=== PATIENT | male | born 1960 | race Caucasian/White ===

== ENCOUNTER 2018-10-23 16:46 | Emergency (ER) | payer OTHER, SELFPAY ==
[2018-10-23 16:47] VITALS: BP 161/77; PULSE 83; RESP 18; TEMP 35.9; O2SAT 95; BMI 37.8
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
[2018-10-23] MEDS: HYDROcodone Bitartrate/Apap 5/325 Tablet PO (17:10)
[2018-10-23] MEDS: Silver Sulfadiazine 1% Crm 50 gm Bottle 1 APPLIC TOPICAL (17:11)
[2018-10-23 17:43] VITALS: RESP 18
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
== END 2018-10-23 17:45 | disposition home or self-care (01) ==
LOC: ED 17:27
PROVIDERS: Emergency Provider Emergency Medicine; Family Provider Family Medicine; PCP Family Medicine
DX: T21.21XA Burn of second degree of chest wall, initial encounter (principal); T21.24XA Burn of second degree of lower back, initial encounter; T31.0 Burns involving less than 10% of body surface; X06.2XXA Exposure to ignition of other clothing and apparel, initial encounter; Y93.9 Activity, unspecified; Y92.89 Other specified places as the place of occurrence of the external cause; Y99.9 Unspecified external cause status; L30.9 Dermatitis, unspecified; Z72.0 Tobacco use
CPT/HCPCS: 99282

== ENCOUNTER → 2019-02-07 11:30 | Outpatient (CLI) | payer OTHER, SELFPAY ==
[2019-02-07 12:03] LABS: Absolute Lymphocyte Count 2.86 X10^3/ul (0.83-4.51); Absolute Neutrophil Count 5.4 X10^3/uL (2.0-7.7); Basophil# 0.07 X10^3/uL; Basophil% 0.7 % (0-1); Eosinophil# 0.28 X10^3/uL; Eosinophils% 2.9 % (0-5); Hematocrit 45.6 % (40-54); Hemoglobin 14.7 g/dl (13.0-16.5); Lymphocyte # 2.86 X10^3/ul (4.0); Lymphocyte % 29.4 % (19-41); Mean Corp Hgb Conc 32.2 g/gl (32-36); Mean Corpuscular Volume 89.9 fL (80-94); Mean Platelet Vol. 10.6 fl (6.2-12.0); Monocyte# 1.08 X10^3/uL; Monocyte% 11.1 % (0-10); Neutrophil # 5.37 X10^3/uL (2.7-7.7); Neutrophil % 55.3 % (47-70); POSITIVE COUNT NO; POSITIVE DIFFERENTIAL NO; POSITIVE MORPHOLOGY NO; Platelet Count 257 K/mm3 (150-450); RBC Distribution Width CV 13.4 % (11.6-14.6); RBC Distribution Width SD 44.1 fl (35.1-43.9); Red Blood Count 5.07 M/mm3 (4.6-6.2); White Blood Count 9.7 K/mm3 (4.4-11.0)
[2019-02-07 12:43] LABS: Albumin, Serum 4.1 g/dL (3.2-5.0); BUN 22 mg/dL (7-18); BUN/Creat Ratio 26.5 RATIO (10-20); Creatinine, Serum 0.83 mg/dL (0.70-1.30); EST Glomerular Filtration Rate 101 mL/min (>60); Est Glom Filt Rate - Afr Amer 122 mL/min (>60); Globulin 3.6 g/dL (2.2-4.2); Glucose 116 mg/dL (74-106); Protein, Total 7.7 g/dL (6.4-8.2)
[2019-02-07 12:44] LABS: ALB/GLOB Ratio 1.1 RATIO (0.9-2.4); AST(SGOT) 18 U/L (15-37); Alanine Aminotransfer ALT/SGPT 31 U/L (16-61); Alkaline Phosphatase 117 U/L (45-117); Anion Gap 6 (5-15); Calcium,Total 9.4 mg/dL (8.5-10.1); Chloride 105 mmol/L (98-107); Potassium 4.4 mmol/L (3.5-5.1); Sodium Level 139 mmol/L (136-145)
[2019-02-11 20:08] LABS: QNTFERON TB Mitogen Value > 10.00 IU/mL (.); QNTFERON TB Nil Value 0.02 IU/mL (.); QNTFERON TB1+ Ag Value 0.02 IU/mL (.); QNTFERON TB2+ Ag Value 0.02 IU/mL (.)
[2019-02-12 15:54] LABS: QNTIFERON TB Positive Criteria Negative (Negative)
== END ==
PROVIDERS: Family Provider Family Medicine; PCP Family Medicine; Referring Provider Physician Assistant; Visit Provider Physician Assistant
DX: L40.0 Psoriasis vulgaris (principal); Z79.899 Other long term (current) drug therapy; S20.469A Insect bite (nonvenomous) of unspecified back wall of thorax, initial encounter; S30.861A Insect bite (nonvenomous) of abdominal wall, initial encounter
CPT/HCPCS: 36415; 80053; 85025; 86480

== ENCOUNTER 2020-01-05 08:25 | Day surgery (SDC) | payer OTHER, SELFPAY ==
[2020-01-05 08:42] VITALS: BP 144/80; PULSE 75; RESP 18; TEMP 36.6; O2SAT 94; BMI 36.8
[2020-01-05] MEDS: Lactated Ringers 1,000 ML 100 ML IV (09:05)
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
--- NOTE | 2020-01-05 09:54 | OP.CCLET_ITS ---
01/05/2020 Gigi Alas Re : Colonoscopy procedure for Peng Michelle Dear Evette This procedure was performed on Sunday, January 05, 2020. My impressions and recommendations are as follows: Impressions : - The entire examined colon is normal on direct and retroflexion views. - No specimens collected. Recommendations : - Discharge patient to home. - Resume previous diet. - Continue present medications. - Repeat colonoscopy in 10 years for screening purposes. My findings are described in the full procedure note, which is enclosed. If I can be of further assistance, please feel free to contact me at Doctor phone number(s): , Work: . Sincerely, Dima Gregory MD 01/05/2020 9:53:46 AM This report has been signed electronically.
--- NOTE | 2020-01-05 09:54 | OP.COLON_ITS ---
Patient Name: Peng Michelle Procedure Date: 01/05/2020 9:30 AM Date of : 1960 Age: 59 Procedure: Colonoscopy Indications: Screening for colorectal malignant neoplasm Providers: Dima Gregory MD Medicines: Monitored Anesthesia Care Patient Profile: This is a 59 year old male. Refer to note in patient chart for documentation of history and physical. Last Colonoscopy: 10 years ago. Complications: No immediate complications. Procedure: Pre-Anesthesia Assessment: - Prior to the procedure, a History and Physical was performed, and patient medications and allergies were reviewed. The patient's tolerance of previous anesthesia was also reviewed. The risks and benefits of the procedure and the sedation options and risks were discussed with the patient. All questions were answered, and informed consent was obtained. Prior Anticoagulants: The patient has taken no previous anticoagulant or antiplatelet agents. ASA Grade Assessment: II - A patient with mild systemic disease. After reviewing the risks and benefits, the patient was deemed in satisfactory condition to undergo the procedure. After I obtained informed consent, the scope was passed under direct vision. Throughout the procedure, the patient's blood pressure, pulse, and oxygen saturations were monitored continuously. The pediatric colonoscope was introduced through the anus and advanced to the cecum, identified by appendiceal orifice and ileocecal valve. The colonoscopy was performed without difficulty. The patient tolerated the procedure well. The quality of the bowel preparation was good. Scope In: 9:40:29 AM Scope Withdrawal Time 0 hours 6 minutes 2 seconds Scope Out: 9:50:33 AM Total Procedure Duration Time 0 hours 10 minutes 4 seconds Findings: The entire examined colon appeared normal on direct and retroflexion views. Impression: - The entire examined colon is normal on direct and retroflexion views. - No specimens collected. Recommendation: - Discharge patient to home. - Resume previous diet. - Continue present medications. - Repeat colonoscopy in 10 years for screening purposes. Procedure Code(s): --- Professional --- 79860, Colonoscopy, flexible; diagnostic, including collection of specimen(s) by brushing or washing, when performed (separate procedure) Diagnosis Code(s): --- Professional --- Z12.11, Encounter for screening for malignant neoplasm of colon CPT copyright 2017 [employer]. All rights reserved. The codes documented in this report are preliminary and upon customer care manager review may be revised to meet current compliance requirements. Dima Gregory MD 01/05/2020 9:53:46 AM This report has been signed electronically. Number of Addenda: 0 Note Initiated On: 01/05/2020 9:30 AM
[2020-01-05 09:55] VITALS: BP 104/55; BP 144/80; PULSE 64; RESP 16; TEMP 36.1; O2SAT 94
[2020-01-05 10:00] VITALS: BP 112/66; BP 144/80; PULSE 64; RESP 16; O2SAT 95
[2020-01-05 10:05] VITALS: BP 107/52; BP 144/80; PULSE 58; RESP 16; O2SAT 95
[2020-01-05 10:10] VITALS: BP 104/55; BP 144/80; PULSE 60; RESP 16; TEMP 36.5; O2SAT 92
[2020-01-05 10:36] VITALS: BP 144/80
== END 2020-01-05 10:37 | disposition home or self-care (01) ==
LOC: EN 08:27 → AC 08:29
PROVIDERS: PCP Family Medicine; Referring Provider Family Medicine; Visit Provider Surgery
PROC: 0DJD8ZZ Inspection of Lower Intestinal Tract, Via Natural or Artificial Opening Endoscopic (ICD-10-PCS; CPT 45378; principal; 2020-01-05 09:40)
DX: Z12.11 Encounter for screening for malignant neoplasm of colon (principal); F17.200 Nicotine dependence, unspecified, uncomplicated
CPT/HCPCS: 45378; J7120

== ENCOUNTER → 2021-01-04 09:09 | Outpatient (CLI) | payer OTHER, SELFPAY ==
[2021-01-08 03:06] LABS: QNTFERON TB Mitogen Value > 10.00 IU/mL (.); QNTFERON TB Nil Value 0.02 IU/mL (.); QNTFERON TB1+ Ag Value 0.04 IU/mL (.); QNTFERON TB2+ Ag Value 0.02 IU/mL (.)
[2021-01-08 15:36] LABS: QNTIFERON TB Positive Criteria Negative (Negative)
== END ==
PROVIDERS: PCP Family Medicine; Referring Provider Physician Assistant Medical; Visit Provider Physician Assistant Medical
DX: L40.0 Psoriasis vulgaris (principal); Z79.899 Other long term (current) drug therapy; D22.5 Melanocytic nevi of trunk; L82.1 Other seborrheic keratosis
CPT/HCPCS: 36415; 86480

== ENCOUNTER 2021-02-10 15:35 | Outpatient (RCR) | payer OTHER, SELFPAY ==
[2021-02-10] MEDS: COVID-19 VACC, MRNA(PFIZER)/PF 30 MCG/0.3 ML SYRINGE IM (08:56)
== END 2021-02-10 23:59 ==
LOC: IMMUN 15:35
PROVIDERS: PCP Family Medicine; Visit Provider Family Medicine
DX: Z23 Encounter for immunization (principal)
CPT/HCPCS: 0001A; 91300

== ENCOUNTER 2022-01-03 09:23 | Outpatient (CLI) | payer OTHER, SELFPAY ==
[2022-01-03 11:01] LABS: PSA,Total - Annual Screen 0.46 ng/mL (0.00-4.00)
[2022-01-05 22:06] LABS: QNTFERON TB Mitogen Value > 10.00 IU/mL (.); QNTFERON TB Nil Value 0.02 IU/mL (.); QNTFERON TB1+ Ag Value 0.02 IU/mL (.); QNTFERON TB2+ Ag Value 0.02 IU/mL (.)
[2022-01-05 22:42] LABS: QNTIFERON TB Positive Criteria Negative (Negative)
== END 2022-01-03 23:59 | disposition home or self-care (01) ==
LOC: LAB 09:28
PROVIDERS: PCP Family Medicine; Visit Provider Family Medicine
DX: Z12.5 Encounter for screening for malignant neoplasm of prostate (principal); L40.0 Psoriasis vulgaris; Z79.899 Other long term (current) drug therapy
CPT/HCPCS: 36415; 84153; 86480; G0103

== ENCOUNTER → 2024-02-17 | Outpatient (CLI) | payer OTHER, SELFPAY ==
[2024-02-19 19:07] LABS: QNTFERON TB Mitogen Value > 10.00 IU/mL (.); QNTFERON TB Nil Value 0.05 IU/mL (.); QNTFERON TB1+ Ag Value 0.06 IU/mL (.); QNTFERON TB2+ Ag Value 0.06 IU/mL (.); QNTIFERON TB Positive Criteria Negative (Negative)
== END | disposition home or self-care (01) ==
PROVIDERS: PCP Family Medicine; Referring Provider Dermatology; Visit Provider Dermatology
DX: L40.0 Psoriasis vulgaris (principal); Z79.899 Other long term (current) drug therapy
CPT/HCPCS: 36415; 86480

== ENCOUNTER → 2024-11-30 | Outpatient (CLI) | payer MEDICARE, BC, SELFPAY ==
[2024-12-01 00:12] LABS: ALB/GLOB Ratio 1.2 RATIO (0.9-2.4); AST(SGOT) 22 U/L (15-37); Alanine Aminotransfer ALT/SGPT 41 U/L (16-61); Albumin, Serum 4.2 g/dL (3.2-5.0); Alkaline Phosphatase 106 U/L (45-117); Anion Gap 8 (5-15); BUN 18 mg/dL (7-18); BUN/Creat Ratio 18.1 RATIO (10-20); Calcium,Total 9.1 mg/dL (8.5-10.1); Chloride 102 mmol/L (98-107); Cholesterol 276 mg/dL (200); Creatinine, Serum 0.99 mg/dL (0.70-1.30); EST Glomerular Filtration Rate 80 mL/min (>60); Est Glom Filt Rate - Afr Amer 97 mL/min (>60); Globulin 3.5 g/dL (2.2-4.2); Glucose 173 mg/dL (74-106); High Density Lipoprotein 39 mg/dL; Magnesium 2.3 mg/dL (1.6-2.6); Potassium 3.7 mmol/L (3.5-5.1); Protein, Total 7.7 g/dL (6.4-8.2); Sodium Level 136 mmol/L (136-145); Triglycerides 354 mg/dL; Very Low Density Lipoprotein 71 mg/dL (5-40)
[2024-12-01 00:20] LABS: Absolute Lymphocyte Count 3.01 X10^3/uL (0.83-4.51); Absolute Neutrophil Count 9.7 X10^3/uL (2.0-7.7); Basophil% 0.7 % (0-1); Eosinophils% 1.4 % (0-5); Hematocrit 45.4 % (40-54); Hemoglobin 14.8 g/dL (13.0-16.5); Lymphocyte # 3.01 X10^3/ul (0.83-4.51); Mean Corp Hgb Conc 32.6 g/dL (32-36); Mean Corpuscular Hgb 28.8 pg (27.0-32.0); Mean Corpuscular Volume 88.5 fL (80-94); Mean Platelet Vol. 11.8 fl (6.2-12.0); Monocyte# 1.11 X10^3/uL; Monocyte% 7.8 % (0-10); NRBC Flagged by Analyzer 0 % (0-5); Neutrophil # 9.72 X10^3/uL (2.7-7.7); Neutrophil % 67.9 % (47-70); Platelet Count 264 K/mm3 (150-450); RBC Distribution Width CV 12.6 % (11.6-14.6); RBC Distribution Width SD 40.8 fl (35.1-43.9); Red Blood Count 5.13 M/mm3 (4.6-6.2); White Blood Count 14.3 K/mm3 (4.4-11.0)
[2024-12-03 10:08] LABS: Anti-Centromere B Ab <0.2 AI (0.0-0.9); Anti-Chromatin <0.2 AI (0.0-0.9); Anti-Jo <0.2 AI (0.0-0.9); Anti-Scleroderma-70 AB <0.2 AI (0.0-0.9); Anti-dsDNA Ab <1 IU/mL (0-9); CRP, High Sensitivity 1.83 mg/L (0.00-3.00); RNP Ab <0.2 AI (0.0-0.9); SJOGREN'S Anti-SS-A test < 0.2 AI (0.0-0.9); SJOGREN'S Anti-SS-B test < 0.2 AI (0.0-0.9); Smith Ab <0.2 AI (0.0-0.9)
== END | disposition home or self-care (01) ==
PROVIDERS: PCP Family Medicine; Referring Provider Nurse Practitioner; Visit Provider Nurse Practitioner
DX: E78.00 Pure hypercholesterolemia, unspecified (principal); M25.541 Pain in joints of right hand; R35.0 Frequency of micturition; M35.9 Systemic involvement of connective tissue, unspecified; R79.89 Other specified abnormal findings of blood chemistry; R53.83 Other fatigue; Z12.5 Encounter for screening for malignant neoplasm of prostate
CPT/HCPCS: 80053; 80061; 83735; 84153; 84403; 84443; 85025; 86141; 86225; 86235; G0103

== ENCOUNTER 2025-02-18 07:20 | Outpatient (CLI) | payer MEDICARE, BC, SELFPAY ==
[2025-02-18 10:56] LABS: Hemoglobin A1c 5.9 % (<=5.6)
[2025-02-18 11:05] LABS: Estradiol 39.1 pg/mL; Follicle Stimulating Hormone 4.4 mIU/mL; Luteinizing Hormone 3.5 mIU/mL; Vitamin D,25 Hydroxy 28.2 ng/mL (30-100)
[2025-02-27 11:09] LABS: Sex Hormone-binding Globulin 57.1 nmol/L (19.3-76.4); Testosterone, % Free 2.63 % (1.50-4.20); Testosterone, Free 9.94 ng/dL (5.00-21.00); Testosterone, Total 378 ng/dL (264-916)
== END 2025-02-18 23:59 | disposition home or self-care (01) ==
LOC: MTLAB 07:24
PROVIDERS: PCP Family Medicine; Referring Provider Registered Nurse; Visit Provider Registered Nurse
DX: E29.1 Testicular hypofunction (principal); R53.83 Other fatigue; R68.82 Decreased libido; R35.0 Frequency of micturition
CPT/HCPCS: 36415; 82306; 82670; 83001; 83002; 83036; 84270; 84402; 84403

== ENCOUNTER → 2025-06-21 | Outpatient (CLI) | payer MEDICARE, BC, SELFPAY ==
--- OUTSIDE RECORDS SUMMARY | 2025-06-21 10:38 | XMS RPT_ITS | CCD ---
Author Organization [facility] Care Team Providers Care Electrostatic Powder Coating Technician Name Role Phone Unavailable Primary Care Provider Unavailstephanie Alas MD, Dr. Yu Primary Care Provider [phone] Evette FAN, Dr. Yu Referring Provider Tobin SCRUBBING MACHINE OPERATOR-CAshley Attending Provider [phone] Tobin SCRUBBING MACHINE OPERATOR-CAshley Referring Provider [phone] Faith SCRUBBING MACHINE OPERATOR-CDong Attending Provider Faith SCRUBBING MACHINE OPERATOR-CDong Referring Provider [phone] Tobin SCRUBBING MACHINE OPERATORAshley Referring Unavailable Tobin SCRUBBING MACHINE OPERATORAshley Attending Unavailable Gigi Alas Primary Care Unavailable Dong Cuevas Referring Unavailable Dong Cuevas Attending Unavailable Gigi Alas Primary Care Unavailable Dong Cuevas Attending Unavailable Gigi Alas Primary Care Unavailable Allergies Allergy Classification Reported Allergen(s) Allergy Type Date of Onset Reaction(s) Facility (2 sources) Morphine Drug Allergy 0 Unknown [facility] (2 sources) Shellfish; Translations: [shellfish derived] Allergy to substance 4 skin red and scales [facility] (1 source) Morphine Drug Allergy 0 [facility] Repository Medications Current Medications Medication Drug Class(es) Dates Sig (Normalized) Sig (Original) atorvastatin 40 mg oral tablet (2 sources) HMG-CoA Reductase Inhibitor Start: 12-01-2024 End: 02-16-2025 take 1 tablet by mouth once daily Atorvastatin 40 mg tablet Active 40 mg PO daily February 16, 2025 12:17pm 1 ml ustekinumab 90 mg/ml prefilled syringe (2 sources) Interleukin-12 Antagonist, Interleukin-23 Antagonist Start: 01-04-2020 inject 90 mg by subcutaneous injection every month Ustekinumab 90 MG/ML syringe Active 90 mg SQ EVERY MONTH January 04, 2020 1:00am every 3 months Start: 01-04-2020 inject 90 mg by subc utaneous injection every month Ustekinumab Active 90 MG SQ EVERY MONTH January 04, 2020 1:00am every 3 months Completed/Discontinued Medications Medication Drug Class(es) Dates Sig (Normalized) Sig (Original) amoxicillin 875 mg / clavulanate 125 mg oral tablet (1 source) Penicillin-class Antibacterial Start: 04-08-2024 End: 12-01-2024 Amoxicillin-Pot Clavulanate 875-125 mg tablet Discontinued 1 {tbl} PO TWICE A DAY April 08, 2024 12:00am December 01, 2024 2:00pm predniSONE 20 mg oral tablet (1 source) Start: 04-27-2024 End: 12-01-2024 take 2 tablets by mouth once daily Prednisone 20 mg tablet Discontinued 40 mg PO DAILY April 27, 2024 12:00am December 01, 2024 2:00pm Problems Problem Classification Problem Date Documented Da te Episodic/Chronic Chronic obstructive pulmonary disease and bronchiectasis (1 source) Bronchitis; Translations: [Bronchitis, not specified as acute or chronic] 04-08-2024 Episodic Disorders of lipid metabolism (3 sources) Hypercholesterolemi a; Translations: [Pure hypercholesterolemi a, unspecified] Onset: 12-24-2024 11-30-2024 Chronic Genitourinary symptoms and ill-defined conditions (3 sources) Increased frequency of urination; Translations: [Frequency of micturition] Onset: 06-11-2025 11-30-2024 Episodic Malaise and fatigue (4 sources) Fatigue; Translations: [Other fatigue] Onset: 02-03-2016 09-06-2022 Episodic Other endocrine disorders (2 sources) Male hypogonadism; Translations: [Testicular hypofunction] Onset: 02-03-2016 09-06-2022 Chronic Other endocrine disorders (2 sources) Testicular hypofunction; Translations: [Testicular hypofunction] Onset: 03-17-2025 Chronic Other non-traumatic joint disorders (1 source) Joint pain in right hand; Translations: [Pain in joints of right hand] 11-30-2024 Episodic Other nutritional; endocrine; and metabolic disorders (1 source) Disorder of lipoprotein metabolism, unspecified; Translations: [Disorder of lipoprotein metabolism, unspecified] Onset: 06-11-2025 Chronic Other nutritional; endocrine; and metabolic disorders (1 source) Abnormal weight gain; Translations: [Abnormal weight gain] Onset: 06-11-2025 Episodic Other screening for suspected conditions (not mental disorders or infectious disease) (2 sources) Decreased testosterone level ; Translations: [Other specified abnormal findings of blood chemistry] Onset: 06-11-2025 11-30-2024 Episodic Otitis media and related conditions (1 source) Otitis media of left ear; Translations: [Otitis media, unspecified, left ear] 04-08-2024 Episodic Residual codes; unclassified (1 source) Sleep apnea; Translations: [Sleep apnea, unspecified] 12-01-2024 Chronic Residual codes; unclassified (1 source) Decreased libido; Translations: [Decreased libido] Onset: 06-11-2025 Episodic Systemic lupus erythematosus and connective tissue disorders (1 source) Autoimmune disease; 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, unspecified] 11-30-2024 Chronic Results Test Name Value Interpretation Reference Range Facility Sex Hormone-binding Globulin on 02-27-2025 SHBG 57.1 nmol/L Normal 19.3-76.4 [facility] Comment on above: Result Comment: Perf ormed at: [address] [id number] [facility] Counselor: Dez Butler PhD, Phone: [phone] Performed at: [facility] Lab[address] [id number] [facility] Counselor: Shahba Green MD, Phone: [phone] Performed By: #### L 100.0100, L500.4050, L509.3000, L501.5200, L500.4100, L3100.5440, L501.9910, L3100.7870, L501.9520 #### [facility] [place], [address] Testosterone, Total / Freeon 02-27-2025 TESTOSTER,FREE 9.94 ng/dL Normal 5.00-21.00 [facility] Comment on above: Order Comment: N Performed By: #### L 100.0100, L500.4050, L509.3000, L501.5200, L500.4100, L3100.5440, L501.9910, L3100.7870, L501.9520 #### [facility] [address] [place], [address] TESTOSTER,TOTAL 378 ng/dL Normal 264-916 [facility] Comment on above: Order Comment: N Result Comment: Adul t male reference interval is based on a population of healthy nonobese males (BMI <30) between 19 and 39 years old. Rohini et.al. JCEM 2017,102;7219-3823. PMID: [id number]. Performed By: #### L 100.0100, L500.4050, L509.3000, L501.5200, L500.4100, L3100.5440, L501.9910, L3100.7870, L501.9520 #### [facility] [address] [place], [address] TESTOSTERONE,%F 2.63 Normal 1.50-4.20 [facility] Comment on above: Order Comment: N Performed By: #### L 100.0100, L500.4050, L509.3000, L501.5200, L500.4100, L3100.5440, L501.9910, L3100.7870, L501.9520 #### [facility] [address] [place], [address] E2 post dose follitropin [Ma ss/Vol]Ordered By: Dong Cuevas on 02-18-2025 Estradiol (E2) Level 39.1 pg/mL [facility] Comment on above: MALES ADULT MALE: 10 -40 pg/mL MARK STAGES MEAN AGE REFERENCE RANGES Stage I(>14 days and prepubertal) 7.1 years Undetectable-13 pg/mL Stage II 12.1 years Undetectable-16 pg/mL Stage III 13.6 years Undetectable-26 pg/mL Stage IV 15.1 years Undetectable-38 pg/mL Stage V 18 years 10-40 pg/mL Puberty onset (transition from Mark stage I to Mark Stage II) occurs for boys at a median age of 11.5 (+/- 2) years. For boys, there is no proven relationship between puberty onset and body weight or ethnic origin. Progression through Mark stages is variable. Mark stage V (adult) should be reached by age 18. Estradiolon 02-18-2025 ESTRADIOL 39.1 pg/mL Normal [facility] Comment on above: Result Comment: MALE S ADULT MALE: 10-40 pg/mL MARK STAGES MEAN AGE REFERENCE RANGES Stage I(>14 days and prepubertal) 7.1 years Undetectable-13 pg/mL Stage II 12.1 years Undetectable-16 pg/mL Stage III 13.6 years Undetectable-26 pg/mL Stage IV 15.1 years Undetectable-38 pg/mL Stage V 18 years 10-40 pg/mL Puberty onset (transition from Mark stage I to Mark Stage II) occurs for boys at a median age of 11.5 (+/- 2) years. For boys, there is no proven relationship between puberty onset and body weight or ethnic origin. Progression through Mark stages is variable. Mark stage V (adult) should be reached by age 18. Performed By: #### L 100.0100, L500.4050, L509.3000, L501.5200, L500.4100, L3100.5440, L501.9910, L3100.7870, L501.9520 #### [facility] [place], [address] FSH and LHon 02-18-2025 FSH 4.4 mIU/mL Normal [facility] Comment on above: Result Comment: FEMA LE: Follicular: 1.4 - 18.1 mIU/mL Midcycle: 3.4 - 33.4 mIU/mL Luteal: 1.5 - 9.1 mIU/mL Post Menopause: 23.0 - 116.3 mIU/mL MALE: 1.4 - 18.1 mIU/mL NORMAL REFERENCE RANGES FEMALE FOLLICULAR 2.3 - 12.6 mIU/mL MID-CYCLE PEAK 5.2 - 17.5 mIU/mL LUTEAL 1.7 - 12.9 mIU/mL POST-MENOPAUSAL ON MHT 5.9 - 72.8 mIU/mL NOT ON MHT 12.7 - 132.2 mlU/mL MALE 0.7 - 10.8 mIU/mL Performed By: #### L 100.0100, L500.4050, L509.3000, L501.5200, L500.4100, L3100.5440, L501.9910, L3100.7870, L501.9520 #### [facility] [address] [place], [address] LH 3.5 mIU/mL Normal [facility] Comment on above: Result Comment: FEMA LE: Follicular: 1.9-12.5 mIU/mL Midcycle: 8.7-76.3 mIU/mL Luteal: 0.5-16.9 mIU/mL Post Menopause: 15.9-54.0 mIU/mL MALE: 20-70 Years: 1.5-9.3 mIU/mL >70 Years: 3.1-34.6 mIU/mL Performed By: #### L 100.0100, L500.4050, L509.3000, L501.5200, L500.4100, L3100.5440, L501.9910, L3100.7870, L501.9520 #### [facility] [address] [place], [address] Follicle stimulating hormone (FSH) levelOrdered By: Dong Cuevas on 02-18-2025 Follicle Stimulating Hormone 4.4 mIU/mL [facility] Comment on above: FEMALE:Follicular: 1 .4 - 18.1 mIU/mLMidcycle: 3.4 - 33.4 mIU/mLLuteal: 1.5 - 9.1 mIU/mLPost Menopause: 23.0 - 116.3 mIU/mLMALE: 1.4 - 18.1 mIU/mL NORMAL REFERENCE RANGES FEMALE FOLLICULAR 2.3 - 12.6 mIU/mL MID-CYCLE PEAK 5.2 - 17.5 mIU/mL LUTEAL 1.7 - 12.9 mIU/mL POST-MENOPAUSAL ON MHT 5.9 - 72.8 mIU/mL NOT ON MHT 12.7 - 132.2 mlU/mL MALE 0.7 - 10.8 mIU/mL Hemoglobin A1con 02-18-2025 HbA1c (Bld) [Mass fraction] 5.9 % Normal <=5.6 [facility] Comment on above: Performed By: #### L 3100.5310, L501.9985, L3100.5055, L3100.5060, L3300.1750, L506.1001 #### [facility] [address] [facility] [place], [address] Hemoglobin A1c percentageOrd ered By: Dong Cuevas on 02-18-2025 HbA1c (Bld) [Mass fraction] 5.9 % >5.7 [facility] L506.1001on 02-18-2025 Vitamin D 25-OH 28.2 ng/mL Low 30-100 [facility] Comment on above: Result Comment: Milvia min D Status Deficiency: <20 ng/mL (50nmol/L) Insufficiency: 20-30 ng/mL (50-75 nmol/L) Sufficiency: 30-100 ng/mL (75-250 nmol/L) Toxicity: >100 ng/mL (>250 nmol/L) Performed By: #### L 100.0100, L500.4050, L509.3000, L501.5200, L500.4100, L3100.5440, L501.9910, L3100.7870, L501.9520 #### [facility] [address] [facility] [place], [address] LH ser/plasOrdered By: John Cuevas on 02-18-2025 Luteinizing Hormone 3.5 mIU/mL [facility] Comment on above: FEMALE:Follicular: 1 .9-12.5 mIU/mLMidcycle: 8.7-76.3 mIU/mLLuteal: 0.5-16.9 mIU/mLPost Menopause: 15.9-54.0 mIU/mLMALE:20-70 Years: 1.5-9.3 mIU/mL>70 Years: 3.1-34.6 mIU/mL Vitamin D, 25-hydroxyOrdered By: Dong Cuevas on 02-18-2025 Vitamin D 25-Hydroxy 28.2 ng/mL Low 30-100 [facility] Comment on above: Vitamin D StatusDefi ciency: <20 ng/mL (50nmol/L)Insufficiency: 20-30 ng/mL (50-75 nmol/L)Sufficiency: 30-100 ng/mL (75-250 nmol/L)Toxicity: >100 ng/mL (>250 nmol/L) PARISH Comprehensive Panelon PARISH TABLE Comment Normal . [facility] Comment on above: Result Comment: Auto antibody Disease Association Condition Frequency --------- Antinuclear Antibody, SLE, mixed connective Direct (PARISH-D) tissue diseases --------- dsDNA SLE 40 - 60% --------- Chromatin Drug induced SLE 90% SLE 48 - 97% --------- SSA (Ro) SLE 25 - 35% Sjogren's Syndrome 40 - 70% Lupus 100% --------- SSB (La) SLE 10% Sjogren's Syndrome 30% --------- Sm (anti-Munoz) SLE 15 - 30% --------- QUALITY COMPLIANCE CONSULTANT Mixed Connective Tissue Disease 95% (U1 nRNP, SLE 30 - 50% anti-ribonucleoprotein) Polymyositis and/or Dermatomyositis 20% --------- Scl-70 (antiDNA Scleroderma (diffuse) 20 - 35% topoisomerase) Crest 13% --------- Carly-1 Polymyositis and/or Dermatomyositis 20 - 40% --------- Centromere B Scleroderma - Crest variant 80% Performed By: #### L 100.0100, L500.4050, L509.3000, L501.5200, L500.4100, L3100.5440, L501.9910, L3100.7870, L501.9520 #### [facility] [address] [place], [address] CRP, High Sensitivity [id number] on 12-03-2024 CRP, HIGH SENS 1.83 mg/L Normal 0.00-3.00 [facility] Comment on above: Result Comment: Rela tive Risk for Future Cardiovascular Event Low <1.00 Average 1.00 - 3.00 High >3.00 Performed at: [address] [id number] [facility] Counselor: Dez Butler PhD, Phone: [phone] Performed By: #### L 100.0100, L500.4050, L509.3000, L501.5200, L500.4100, L3100.5440, L501.9910, L3100.7870, L501.9520 #### [facility] [address] [place], [place], [id number] CBC W/Diff, Automatedon 01-0 Absolute Lymph 3.01 X10 3/uL Normal 0.83-4.51 [facility] Comment on above: Performed By: #### L 100.0100, L500.4050, L509.3000, L501.5200, L500.4100, L3100.5440, L501.9910, L3100.7870, L501.9520 #### [facility] [address] [place], [place], [id number] ([phone]) Absolute Neut 9.7 X10 3/uL High 2.0-7.7 [facility] Comment on above: Performed By: #### L 100.0100, L500.4050, L509.3000, L501.5200, L500.4100, L3100.5440, L501.9910, L3100.7870, L501.9520 #### [facility] [address] [place], [place], [id number] (229) Basophils/100 WBC (Bld) 0.7 % Normal 0-1 [facility] Comment on above: Performed By: #### L 100.0100, L500.4050, L509.3000, L501.5200, L500.4100, L3100.5440, L501.9910, L3100.7870, L501.9520 #### [facility] [address] [place], [address] Eosinophils/100 WBC (Bld) 1.4 % Normal 0-5 [facility] Comment on above: Performed By: #### L 100.0100, L500.4050, L509.3000, L501.5200, L500.4100, L3100.5440, L501.9910, L3100.7870, L501.9520 #### [facility] [address] [facility] [place], [address] Erythrocyte distribution width (RBC) [Ratio] 12.6 % Normal 11.6-14.6 [facility] Comment on above: Performed By: #### L 100.0100, L500.4050, L509.3000, L501.5200, L500.4100, L3100.5440, L501.9910, L3100.7870, L501.9520 #### [facility] [address] [facility] [place], [address] Hematocrit (Bld) [Volume fraction] 45.4 % Normal 40-54 [facility] Comment on above: Performed By: #### L 100.0100, L500.4050, L509.3000, L501.5200, L500.4100, L3100.5440, L501.9910, L3100.7870, L501.9520 #### [facility] [address] [facility] [place], [address] Hemoglobin (Bld) [Mass/Vol] 14.8 g/dL Normal 13.0-16.5 [facility] Comment on above: Performed By: #### L 100.0100, L500.4050, L509.3000, L501.5200, L500.4100, L3100.5440, L501.9910, L3100.7870, L501.9520 #### [facility] [address] [place], [address] IG% 1.200 High 0.0-0.9 [facility] Comment on above: Result Comment: IG% - Immature Granulocytes (promyelocytes, myelocytes and metamyelocytes) > 1% indicates that a LEFT SHIFT is Present. Performed By: #### L 100.0100, L500.4050, L509.3000, L501.5200, L500.4100, L3100.5440, L501.9910, L3100.7870, L501.9520 #### [facility] [address] [facility] [place], [address] Lymphocytes/100 WBC (Bld) 21.0 % Normal 19-41 [facility] Comment on above: Performed By: #### L 100.0100, L500.4050, L509.3000, L501.5200, L500.4100, L3100.5440, L501.9910, L3100.7870, L501.9520 #### [facility] [address] [place], [address] MCH (RBC) [Entitic mass] 28.8 pg Normal 27.0-32.0 [facility] Comment on above: Performed By: #### L 100.0100, L500.4050, L509.3000, L501.5200, L500.4100, L3100.5440, L501.9910, L3100.7870, L501.9520 #### [facility] [address] [facility] [place], [address] MCHC (RBC) [Mass/Vol] 32.6 g/dL Normal 32-36 [facility] Comment on above: Performed By: #### L 100.0100, L500.4050, L509.3000, L501.5200, L500.4100, L3100.5440, L501.9910, L3100.7870, L501.9520 #### [facility] [address] [place], [address] MCV (RBC) [Entitic vol] 88.5 fL Normal 80-94 [facility] Comment on above: Performed By: #### L 100.0100, L500.4050, L509.3000, L501.5200, L500.4100, L3100.5440, L501.9910, L3100.7870, L501.9520 #### [facility] [address] [place], [address] Monocytes/100 WBC (Bld) 7.8 % Normal 0-10 [facility] Comment on above: Performed By: #### L 100.0100, L500.4050, L509.3000, L501.5200, L500.4100, L3100.5440, L501.9910, L3100.7870, L501.9520 #### [facility] [address] [place], [address] Neutrophils/100 WBC (Bld) 67.9 % Normal 47-70 [facility] Comment on above: Performed By: #### L 100.0100, L500.4050, L509.3000, L501.5200, L500.4100, L3100.5440, L501.9910, L3100.7870, L501.9520 #### [facility] [address] [place], [address] Nucleated RBC (Bld) [#/Vol] 0 10*3/uL Normal 0-5 [facility] Comment on above: Performed By: #### L 100.0100, L500.4050, L509.3000, L501.5200, L500.4100, L3100.5440, L501.9910, L3100.7870, L501.9520 #### [facility] [address] [place], [address] Platelet mean volume (Bld) [Entitic vol] 11.8 fL Normal 6.2-12.0 [facility] Comment on above: Performed By: #### L 100.0100, L500.4050, L509.3000, L501.5200, L500.4100, L3100.5440, L501.9910, L3100.7870, L501.9520 #### [facility] [address] [place], [address] Platelets (Bld) [#/Vol] 264 10*3/uL Normal 150-450 [facility] Comment on above: Performed By: #### L 100.0100, L500.4050, L509.3000, L501.5200, L500.4100, L3100.5440, L501.9910, L3100.7870, L501.9520 #### [facility] [address] [place], [address] RBC (Bld) [#/Vol] 5.13 10*6/uL Normal 4.6-6.2 [facility] Comment on above: Performed By: #### L 100.0100, L500.4050, L509.3000, L501.5200, L500.4100, L3100.5440, L501.9910, L3100.7870, L501.9520 #### [facility] [address] [place], [address] RDW SD 40.8 fl Normal 35.1-43.9 [facility] Comment on above: Performed By: #### L 100.0100, L500.4050, L509.3000, L501.5200, L500.4100, L3100.5440, L501.9910, L3100.7870, L501.9520 #### [facility] [address] [place], [address] WBC (Bld) [#/Vol] 14.3 10*3/uL High 4.4-11.0 [facility] Comment on above: Performed By: #### L 100.0100, L500.4050, L509.3000, L501.5200, L500.4100, L3100.5440, L501.9910, L3100.7870, L501.9520 #### [facility] [address] [place], [address] Comprehensive Metabolic Prof ilon 12-01-2024 Albumin [Mass/Vol] 4.2 g/dL Normal 3.2-5.0 [facility] Comment on above: Performed By: #### L 100.0100, L500.4050, L509.3000, L501.5200, L500.4100, L3100.5440, L501.9910, L3100.7870, L501.9520 #### [facility] [address] [place], [address] Albumin/Globulin [Mass ratio] 1.2 {ratio} Normal 0.9-2.4 [facility] Comment on above: Performed By: #### L 100.0100, L500.4050, L509.3000, L501.5200, L500.4100, L3100.5440, L501.9910, L3100.7870, L501.9520 #### [facility] [address] [place], [address] ALK P 106 U/L Normal 45-117 [facility] Comment on above: Performed By: #### L 100.0100, L500.4050, L509.3000, L501.5200, L500.4100, L3100.5440, L501.9910, L3100.7870, L501.9520 #### [facility] [address] [place], [address] ALT [Catalytic activity/Vol] 41 U/L Normal 16-61 [facility] Comment on above: Performed By: #### L 100.0100, L500.4050, L509.3000, L501.5200, L500.4100, L3100.5440, L501.9910, L3100.7870, L501.9520 #### [facility] [address] [place], [address] AST [Catalytic activity/Vol] 22 U/L Normal 15-37 [facility] Comment on above: Performed By: #### L 100.0100, L500.4050, L509.3000, L501.5200, L500.4100, L3100.5440, L501.9910, L3100.7870, L501.9520 #### [facility] [address] [place], [address] Bilirubin [Mass/Vol] 0.50 mg/dL Normal 0.20-1.00 [facility] Comment on above: Result Comment: For patients on eltrombopag therapy, use of Dimension [place] TBIL is not recommended. Performed By: #### L 100.0100, L500.4050, L509.3000, L501.5200, L500.4100, L3100.5440, L501.9910, L3100.7870, L501.9520 #### [facility] [address] [place], [address] BUN/CRE 18.1 RATIO Normal 10-20 [facility] Comment on above: Performed By: #### L 100.0100, L500.4050, L509.3000, L501.5200, L500.4100, L3100.5440, L501.9910, L3100.7870, L501.9520 #### [facility] [address] [place], [address] CA,Total 9.1 mg/dL Normal 8.5-10.1 [facility] Comment on above: Performed By: #### L 100.0100, L500.4050, L509.3000, L501.5200, L500.4100, L3100.5440, L501.9910, L3100.7870, L501.9520 #### [facility] [address] [place], [address] Chloride [Moles/Vol] 102 mmol/L Normal 98-107 [facility] Comment on above: Performed By: #### L 100.0100, L500.4050, L509.3000, L501.5200, L500.4100, L3100.5440, L501.9910, L3100.7870, L501.9520 #### [facility] [address] [place], [address] CO2 [Moles/Vol] 26.0 mmol/L Normal 21.0-32.0 [facility] Comment on above: Performed By: #### L 100.0100, L500.4050, L509.3000, L501.5200, L500.4100, L3100.5440, L501.9910, L3100.7870, L501.9520 #### [facility] [address] [place], [address] Creatinine [Mass/Vol] 0.99 mg/dL Normal 0.70-1.30 [facility] Comment on above: Result Comment: The validity of the calculated GFR GFRAA in patients over 70 years has not been determined. Clinical correlation is essential. Performed By: #### L 100.0100, L500.4050, L509.3000, L501.5200, L500.4100, L3100.5440, L501.9910, L3100.7870, L501.9520 #### [facility] [address] [place], [address] EST GFR - AA 97 mL/min Normal >60 [facility] Comment on above: Result Comment: Afri can Prydeinig GFR Calc Performed By: #### L 100.0100, L500.4050, L509.3000, L501.5200, L500.4100, L3100.5440, L501.9910, L3100.7870, L501.9520 #### [facility] [address] [place], [address] GAP 8 Normal 5-15 [facility] Comment on above: Performed By: #### L 100.0100, L500.4050, L509.3000, L501.5200, L500.4100, L3100.5440, L501.9910, L3100.7870, L501.9520 #### [facility] [address] [place], [address] GFR/1.73 sq M.predicted among non-blacks MDRD (S/P/Bld) [Vol rate/Area] 80 mL/min/{1.73_m2} Normal >60 [facility] Comment on above: Result Comment: Non- GFR Calc Performed By: #### L 100.0100, L500.4050, L509.3000, L501.5200, L500.4100, L3100.5440, L501.9910, L3100.7870, L501.9520 #### [facility] [address] [place], [address] Globulin (S) [Mass/Vol] 3.5 g/dL Normal 2.2-4.2 [facility] Comment on above: Performed By: #### L 100.0100, L500.4050, L509.3000, L501.5200, L500.4100, L3100.5440, L501.9910, L3100.7870, L501.9520 #### [facility] [address] [place], [address] Glucose [Mass/Vol] 173 mg/dL High 74-106 [facility] Comment on above: Result Comment: Fast ing Glucose result greater than or equal to 126 mg/dL suggests DIABETES MELLITUS per A.D.A. criteria. Performed By: #### L 100.0100, L500.4050, L509.3000, L501.5200, L500.4100, L3100.5440, L501.9910, L3100.7870, L501.9520 #### [facility] [address] [place], [address] Potassium [Moles/Vol] 3.7 mmol/L Normal 3.5-5.1 [facility] Comment on above: Performed By: #### L 100.0100, L500.4050, L509.3000, L501.5200, L500.4100, L3100.5440, L501.9910, L3100.7870, L501.9520 #### [facility] [address] [place], [address] Sodium [Moles/Vol] 136 mmol/L Normal 136-145 [facility] Comment on above: Performed By: #### L 100.0100, L500.4050, L509.3000, L501.5200, L500.4100, L3100.5440, L501.9910, L3100.7870, L501.9520 #### [facility] [address] [place], [address] T PROT 7.7 g/dL Normal 6.4-8.2 [facility] Comment on above: Performed By: #### L 100.0100, L500.4050, L509.3000, L501.5200, L500.4100, L3100.5440, L501.9910, L3100.7870, L501.9520 #### [facility] [address] [place], [address] Urea nitrogen [Mass/Vol] 18 mg/dL Normal 7-18 [facility] Comment on above: Performed By: #### L 100.0100, L500.4050, L509.3000, L501.5200, L500.4100, L3100.5440, L501.9910, L3100.7870, L501.9520 #### [facility] [address] [place], [address] Lipid Profileon 12-01-2024 Cholesterol [Mass/Vol] 276 mg/dL High 200 [facility] Comment on above: Result Comment: <200 mg/dL Desirable 200-240 mg/dL Borderline >240 mg/dL High Risk Performed By: #### L 100.0100, L500.4050, L509.3000, L501.5200, L500.4100, L3100.5440, L501.9910, L3100.7870, L501.9520 #### [facility] [address] [place], [address] Cholesterol in HDL [Mass/Vol] 39 mg/dL Low [facility] Comment on above: Result Comment: The drugs N-Acetylcysteine and Metamizole may falsely depress this assay. Reference Range HDL <40 mg/dL Low HDL Cholesterol HDL >or= 60 mg/dL High HDL Cholesterol Performed By: #### L 100.0100, L500.4050, L509.3000, L501.5200, L500.4100, L3100.5440, L501.9910, L3100.7870, L501.9520 #### [facility] [address] [place], [address] Cholesterol in LDL [Mass/Vol] 166 mg/dL High 0-130 [facility] Comment on above: Performed By: #### L 100.0100, L500.4050, L509.3000, L501.5200, L500.4100, L3100.5440, L501.9910, L3100.7870, L501.9520 #### [facility] [address] [place], [address] Cholesterol in VLDL [Mass/Vol] 71 mg/dL High 5-40 [facility] Comment on above: Performed By: #### L 100.0100, L500.4050, L509.3000, L501.5200, L500.4100, L3100.5440, L501.9910, L3100.7870, L501.9520 #### [facility] [address] [place], [place], [id number] Triglyceride [Mass/Vol] 354 mg/dL High [facility] Comment on above: Result Comment: The drugs N-Acetylcysteine and Metamizole may falsely depress this assay. Serum Triglycerides Reference Interval Normal <150 mg/dL Borderline high 150 - 199 mg/dL High 200 - 499 mg/dL Very High > or = 500 mg/dL Performed By: #### L 100.0100, L500.4050, L509.3000, L501.5200, L500.4100, L3100.5440, L501.9910, L3100.7870, L501.9520 #### [facility] [address] [place], [address] Magnesiumon 12-01-2024 Magnesium [Mass/Vol] 2.3 mg/dL Normal 1.6-2.6 [facility] Comment on above: Performed By: #### L 100.0100, L500.4050, L509.3000, L501.5200, L500.4100, L3100.5440, L501.9910, L3100.7870, L501.9520 #### [facility] [address] [place], [place], [address] PSA,Total - Annual Screenon 12-01-2024 PSA,TOT SCREEN 0.40 ng/mL Normal 0.00-4.00 [facility] Comment on above: Result Comment: This test was performed using the TPSA assay method for the [employer] system. Values obtained with different assay methods cannot be used interchangably. When changing PSA assays in the course of monitoring a patient, additional sequential testing should be carried out to confirm baseline values. Performed By: #### L 100.0100, L500.4050, L509.3000, L501.5200, L500.4100, L3100.5440, L501.9910, L3100.7870, L501.9520 #### [facility] [address] [place], [address] Testosterone, Serum Totalon 12-01-2024 Testosterone [Mass/Vol] 150.58 ng/dL Normal [facility] Comment on above: Result Comment: CENT RAL 90% REFERENCE RANGES MALE AGE <50 197.44 - 669.58 ng/dL MALE AGE > or = 50 187.72 - 684.19 ng/dL FEMALE AGE <50 8.38 - 35.01 ng/dL FEMALE AGE > or = 50 <7.00 - 35.92 ng/dL Effective as of 06/20/21 Performed By: #### L 100.0100, L500.4050, L509.3000, L501.5200, L500.4100, L3100.5440, L501.9910, L3100.7870, L501.9520 #### [facility] [address] [place], [place], [id number] Thyroid Stim Hormone (TSH)on 12-01-2024 TSH 1.610 uIU/mL Normal 0.358-3.74 0 [facility] Comment on above: Performed By: #### L 100.0100, L500.4050, L509.3000, L501.5200, L500.4100, L3100.5440, L501.9910, L3100.7870, L501.9520 #### [facility] [address] [place], [place], [address] Absolute neutrophil countOrd ered By: Ashley Rudd on 11-30-2024 Neutrophils (Bld) [#/Vol] 9.7 10*3/uL High 2.0-7.7 [facility] Albumin to globulin ratioOrd ered By: Ashley Rudd on 11-30-2024 Albumin/Globulin [Mass ratio] 1.2 {ratio} 0.9-2.4 [facility] Basophil percentageOrdered B y: Ashley Rudd on 11-30-2024 Basophils/100 WBC (Bld) 0.7 % 0-1 [facility] Bilirubin, totalOrdered By: Ashley Rudd on 11-30-2024 Bilirubin [Mass/Vol] 0.50 mg/dL 0.20-1.00 [facility] Comment on above: For patients on eltr ombopag therapy, use of Dimension [place] TBIL is not recommended. Blood urea nitrogen (BUN)/cr eatinine ratioOrdered By: Ashley Rudd on 11-30-2024 Urea nitrogen/Creatinine [Mass ratio] 18.1 mg/mg 10-20 [facility] C-reactive protein measureme nt by high sensitivity methodOrdered By: Ashley Rudd on 11-30-2024 C-Reactive Protein High Sensitivity 1.83 mg/L 0.00-3.00 [facility] Comment on above: Relative Risk for Fu ture Cardiovascular Event Low <1.00 Average 1.00 - 3.00 High >3.00Performed at: [facility] [place] [id number] Director: Dez Butler PhD, Phone: [phone] Carbon dioxide measurementOr dered By: Ashely Rudd on 11-30-2024 CO2 [Moles/Vol] 26.0 mmol/L 21.0-32.0 [facility] Centromere B antibody assayO rdered By: Ashley Rudd on 11-30-2024 Centromere B Antibody <0.2 AI 0.0-0.9 [facility] Comment on above: Previous reported re sult: TNP AIEdited by: YONNY on 12/03/24:1008 AMENDED REPORT 12/03/24 1008 ANTI-CENT B previously reported as: Test not performed Chloride measurementOrdered By: Ashley Rudd on 11-30-2024 Chloride [Moles/Vol] 102 mmol/L 98-107 [facility] Chromatin antibody assayOrde red By: Ashley Rudd on 11-30-2024 Antichromatin Antibodies <0.2 AI 0.0-0.9 [facility] Comment on above: Previous reported re sult: TNP AIEdited by: YONNY on 12/03/24:1008 AMENDED REPORT 12/03/24 1008 ANTICHROMATIN previously reported as: Test not performed DNA double strand Ab Qn (S)O rdered By: Ashley Rudd on 11-30-2024 Anti-Double Strand DNA Antibody <1 IU/mL 0-9 [facility] Comment on above: Negative <5 Equivoca l 5 - 9 Positive >9Previous reported result: TNP IU/mLEdited by: YONNY on 12/03/24:1008 AMENDED REPORT 12/03/24 1008 dsDNA AB previously reported as: Test not performed Eosinophil percentageOrdered By: sAhley Rudd on 11-30-2024 Eosinophils/100 WBC (Bld) 1.4 % 0-5 [facility] Erythrocyte distribution wid th ratioOrdered By: Ashley Rudd on 11-30-2024 Erythrocyte distribution width (RBC) [Ratio] 12.6 % 11.6-14.6 [facility] Erythrocyte distribution wid th standard deviationOrdered By: Ashley Rudd on 11-30-2024 Erythrocyte distribution width (RBC) [Entitic vol] 40.8 fL 35.1-43.9 [facility] Estimated glomerular filtrat ion rate (GFR) AmericanOrdered By: Ashley Rudd on 11-30-2024 Estimated GFR (MDRD) Amer 97 mL/min >60 [facility] Comment on above: GFR Calc Glomerular filtration rate ( GFR) estimationOrdered By: Ashley Rudd on 11-30-2024 Estimated GFR (MDRD) Non-Af Amer 80 mL/min >60 [facility] Comment on above: Non- GFR Calc Glucose measurementOrdered B y: Ashley Rudd on 11-30-2024 Glucose [Mass/Vol] 173 mg/dL High 74-106 [facility] Comment on above: Fasting Glucose resu lt greater than or equal to 126 mg/dL suggests DIABETES MELLITUS per A.D.A. criteria. Hematocrit Auto (Bld) [Volum e fraction]Ordered By: Ashley Rudd on 11-30-2024 Hematocrit (Bld) [Volume fraction] 45.4 % 40-54 [facility] Hemoglobin measurementOrdere d By: Ashley Rudd on 11-30-2024 Hemoglobin (Bld) [Mass/Vol] 14.8 g/dL 13.0-16.5 [facility] High density lipoprotein (HD L) measurementOrdered By: Ashley Rudd on 11-30-2024 Cholesterol in HDL [Mass/Vol] 39 mg/dL Low >40 [facility] Comment on above: The drugs N-Acetylcy steine and Metamizole may falsely depress this assay. Reference Range HDL <40 mg/dL Low HDL Cholesterol HDL >or= 60 mg/dL High HDL Cholesterol Immature granulocytes/100 WB C Auto (Bld)Ordered By: Ashley Rudd on 11-30-2024 Immature granulocytes/100 WBC (Bld) 1.200 % High 0.0-0.9 [facility] Comment on above: IG% - Immature Granu locytes (promyelocytes, myelocytes and metamyelocytes) > 1% indicates that a LEFT SHIFT is Present. Carly-1 antibody assayOrdered B y: Ashley Rudd on 11-30-2024 CARLY-1 Antibody <0.2 AI 0.0-0.9 [facility] Comment on above: Previous reported re sult: TNP AIEdited by: YONNY on 12/03/24:1008 AMENDED REPORT 12/03/24 1008 ANTI-CARLY previously reported as: Test not performed Laboratory - Chemistry and C hemistry - challengeOrdered By: Ashley Rudd on 11-30-2024 AST [Catalytic activity/Vol] 22 U/L 15-37 [facility] Low density lipoprotein (LDL ) cholesterol measurementOrdered By: Ashley Rudd on 11-30-2024 Cholesterol in LDL [Mass/Vol] 166 mg/dL High 0-130 [facility] Lymphocytes Auto (Unsp spec) [#/Vol]Ordered By: Ashley Rudd on 11-30-2024 Lymphocytes (Bld) [#/Vol] 3.01 10*3/uL 0.83-4.51 [facility] Lymphocytes/100 WBC Auto (Un sp spec)Ordered By: Ashley Rudd on 11-30-2024 Lymphocytes/100 WBC (Bld) 21.0 % 19-41 [facility] MCV (mean corpuscular volume ) determinationOrdered By: Ashley Rudd on 11-30-2024 MCV (RBC) [Entitic vol] 88.5 fL 80-94 [facility] Magnesium measurementOrdered By: Ashley Rudd on 11-30-2024 Magnesium [Mass/Vol] 2.3 mg/dL 1.6-2.6 [facility] Mean corpuscular hemoglobin (MCH) determinationOrdered By: Ashley Rudd on 11-30-2024 MCH (RBC) [Entitic mass] 28.8 pg 27.0-32.0 [facility] Mean corpuscular hemoglobin concentration (MCHC) determinationOrdered By: Ashley Rudd on 11-30-2024 MCHC (RBC) [Mass/Vol] 32.6 g/dL 32-36 [facility] Mean platelet volume determi nationOrdered By: Ashley Rudd on 11-30-2024 Platelet mean volume (Bld) [Entitic vol] 11.8 fL 6.2-12.0 [facility] Monocyte percentageOrdered B y: Ashley Rudd on 11-30-2024 Monocytes/100 WBC (Bld) 7.8 % 0-10 [facility] Neutrophil percentageOrdered By: Ashley Rudd on 11-30-2024 Neutrophils/100 WBC (Bld) 67.9 % 47-70 [facility] Nucleated red blood cell per centageOrdered By: Ashley Rudd on 11-30-2024 Nucleated RBC/100 WBC (Bld) [Ratio] 0 % 0-5 [facility] Platelet countOrdered By: Do ra Rudd on 11-30-2024 Platelets (Bld) [#/Vol] 264 10*3/uL 150-450 [facility] Potassium measurementOrdered By: Ashley Rudd on 11-30-2024 Potassium [Moles/Vol] 3.7 mmol/L 3.5-5.1 [facility] RBC Auto (Bld) [#/Vol]Ordere d By: Ashley Rudd on 11-30-2024 RBC (Bld) [#/Vol] 5.13 10*6/uL 4.6-6.2 [facility] QUALITY COMPLIANCE CONSULTANT abOrdered By: Ashley coppola on 11-30-2024 QUALITY COMPLIANCE CONSULTANT Antibody <0.2 AI 0.0-0.9 [facility] Comment on above: Previous reported re sult: TNP AIEdited by: YONNY on 12/03/24:1008 AMENDED REPORT 12/03/24 1008 QUALITY COMPLIANCE CONSULTANT Ab previously reported as: Test not performed SCL-70 extractable nuclear A b Qn (S)Ordered By: Ashley Rudd on 11-30-2024 Scl-70 (Scleroderma) Antibody <0.2 AI 0.0-0.9 [facility] Comment on above: Previous reported re sult: TNP AIEdited by: YONNY on 12/03/24:1008 AMENDED REPORT 12/03/24 1008 ANTISCLER previously reported as: Test not performed SS-A IgG antibody assayOrder ed By: Ashley Rudd on 11-30-2024 SS-A/Ro IgG Antibody < 0.2 AI 0.0-0.9 [facility] Comment on above: Previous reported re sult: TNP AIEdited by: YONNY on 12/03/24:1008 AMENDED REPORT 12/03/24 1008 Anti-SS-A previously reported as: Test not performed SS-B IgG antibody assayOrder ed By: Ashley Rudd on 11-30-2024 SS-B/La IgG Antibody < 0.2 AI 0.0-0.9 [facility] Comment on above: Previous reported re sult: TNP AIEdited by: YONNY on 12/03/24:1008 AMENDED REPORT 12/03/24 1008 Anti-SS-B previously reported as: Test not performed Screening prostate specific antigen (PSA) measurementOrdered By: Ashley Rudd on 11-30-2024 Prostate Specific Antigen Screen 0.40 ng/mL 0.00-4.00 [facility] Comment on above: This test was perfor med using the TPSA assay method for the[employer] chemistry system. Values obtained with differentassay methods cannot be used interchangably.When changing PSA assays in the course of monitoring apatient, additional sequential testing should be carriedout to confirm baseline values. Serum anion gap measurementO rdered By: Ashley Rudd on 11-30-2024 Anion gap [Moles/Vol] 8 mmol/L 5-15 [facility] Serum globulin measurementOr dered By: Ashley Rudd on 11-30-2024 Globulin (S) [Mass/Vol] 3.5 g/dL 2.2-4.2 [facility] Serum or plasma alanine arauz otransferase (ALT) measurementOrdered By: Ashley Rudd on 11-30-2024 ALT [Catalytic activity/Vol] 41 U/L 16-61 [facility] Serum or plasma albumin byron urement (mass/volume)Ordered By: Ashley Rudd on 11-30-2024 Albumin [Mass/Vol] 4.2 g/dL 3.2-5.0 [facility] Serum or plasma alkaline chapo sphatase measurementOrdered By: Ashley Rudd on 11-30-2024 ALP [Catalytic activity/Vol] 106 U/L 45-117 [facility] Serum or plasma calcium byron urement (mass/volume)Ordered By: Ashley Rudd on 11-30-2024 Calcium [Mass/Vol] 9.1 mg/dL 8.5-10.1 [facility] Serum or plasma cholesterol measurement (mass/volume)Ordered By: Ashley Rudd on 11-30-2024 Cholesterol [Mass/Vol] 276 mg/dL High <200 [facility] Comment on above: <200 mg/dL Desirable 200-240 mg/dL Borderline >240 mg/dL High Risk Serum or plasma creatinine m easurement (mass/volume)Ordered By: Ashley Rudd on 11-30-2024 Creatinine [Mass/Vol] 0.99 mg/dL 0.70-1.30 [facility] Comment on above: The validity of the calculated GFR & GFRAA in patients over 70 years has not been determined. Clinical correlation is essential. Serum or plasma urea nitroge n measurement (mass/volume)Ordered By: Ashley Rudd on 11-30-2024 Urea nitrogen [Mass/Vol] 18 mg/dL 7-18 [facility] Munoz antibody assayOrdered By: Ashley Rudd on 11-30-2024 SM Antibody <0.2 AI 0.0-0.9 [facility] Comment on above: Previous reported re sult: TNP AIEdited by: YONNY on 12/03/24:1008 AMENDED REPORT 12/03/24 1008 [place] Ab previously reported as: Test not performed Sodium levelOrdered By: Ashley Rudd on 11-30-2024 Sodium [Moles/Vol] 136 mmol/L 136-145 [facility] TSH QnOrdered By: Ashley coppola on 11-30-2024 Thyroid Stimulating Hormone (TSH) 1.610 uIU/mL 0.358-3.74 0 [facility] Testosterone, totalOrdered B y: Ashley Rudd on 11-30-2024 Testosterone [Mass/Vol] 150.58 ng/dL [facility] Comment on above: CENTRAL 90% REFERENC E RANGES MALE AGE <50 197.44 - 669.58 ng/dL MALE AGE > or = 50 187.72 - 684.19 ng/dL FEMALE AGE <50 8.38 - 35.01 ng/dL FEMALE AGE > or = 50 <7.00 - 35.92 ng/dL Effective as of 06/20/21 Total proteinOrdered By: Juan A Rudd on 11-30-2024 Protein [Mass/Vol] 7.7 g/dL 6.4-8.2 [facility] Triglycerides measurementOrd ered By: Ashley Rudd on 11-30-2024 Triglyceride [Mass/Vol] 354 mg/dL High <199 [facility] Comment on above: The drugs N-Acetylcy steine and Metamizole may falsely depress this assay.Serum Triglycerides Reference Interval Normal <150 mg/dL Borderline high 150 - 199 mg/dL High 200 - 499 mg/dL Very High > or = 500 mg/dL Very low density lipoprotein (VLDL) cholesterol measurementOrdered By: Ashley Rudd on 11-30-2024 VLDL Cholesterol 71 mg/dL High 5-40 [facility] White blood cell (WBC) count Ordered By: Ashley Rudd on 11-30-2024 WBC (Bld) [#/Vol] 14.3 10*3/uL High 4.4-11.0 [facility] 04-08-2024 36 Patient scheduled wi th a different PCP. Normal [facility] 36 That is what okay th harvey kilgore means [facility] 36 Okay, thank you [facility] 36on 04-07-2024 36 Name of Caller: Carlene Contact Reason for Appointment: calling to schedule patient. However patient hasn't been seen since 2017. Would Dr Alas take him on as a new patient? Please advise Carlene. Office Name: [place] [facility] Medication Refills need, if any: Medication Name: [facility] Qualitative QuantiFERON-TB g old in tube testOrdered By: Imer Barillas on 02-17-2024 M. tuberculosis tuberculin stim IFN-g Ql (Bld) 0.06 IU/mL . [facility] Thin prep Papanicolaou smear with manual screeningOrdered By: Imer Barillas on 02-17-2024 Thin prep Papanicolaou smear with manual screening Comment . [facility] Comment on above: QuantiFERON-TB Gold Plus is a qualitative indirect test forM tuberculosis infection (including disease) and isintended for use in conjunction with risk assessment,radiography, and other medical and diagnostic evaluations.The QuantiFERON-TB Gold Plus result is determined bysubtracting the Nil value from either TB antigen (Ag)value. The Mitogen tube serves as a control for the test. Thin prep Papanicolaou smear with manual screening 0.06 IU/mL . [facility] Thin prep Papanicolaou smear with manual screening 0.05 IU/mL . [facility] Thin prep Papanicolaou smear with manual screening > 10.00 IU/mL . [facility] Thin prep Papanicolaou smear with manual screening Negative Negative [facility] Comment on above: No response to M tub erculosis antigens detected.Infection with M tuberculosis is unlikely, but high riskindividuals should be considered for additional testing(ATS/IDSA/CDC Clinical Practice Guidelines, 2017). Thereference range is an Antigen minus Nil result of <0.35IU/mL.The specimen received for QuantiFERON testing was incubatedby the ordering institution. Specific procedures outlinedin our Directory of Services and in the package insert forthe QuantiFERON Gold (In Tube) test must be followed toenable for proper stimulation of cells for the productionof interferon gamma. Chemiluminescence immunoassaymethodologyPerformed at: - [facility] [id number] Director: Dez Butler PhD, Phone: [phone] Vital Signs Date Time Vital Sign Value Performing Clinician Faci lity 11-30-2024 16:18-0500 Body height 173.[address] Gigi Alas MD Work Phone: [facility] 11-30-2024 16:18-0500 Body mass index (BMI) [Ratio] 39.8 kg/m2 Dr. Gigi Alas MD Work Phone: [facility] 11-30-2024 16:18-0500 Body temperature 97.7 [degF] Dr. Gigi Alas MD Work Phone: [facility] 11-30-2024 16:18-0500 Body weight 120.[address] Gigi Alas MD Work Phone: [facility] 11-30-2024 16:18-0500 Diastolic blood pressure 70 mm[Hg] Dr. Gigi Alas MD Work Phone: [facility] 11-30-2024 16:18-0500 Heart rate 87 /min Dr. Gigi Alas MD Work Phone: [facility] 11-30-2024 16:18-0500 Respiratory rate 18 /min Dr. Gigi Alas MD Work Phone: [facility] 11-30-2024 16:18-0500 SaO2% (BldA) [Mass fraction] 96 % Dr. Gigi Alas MD Work Phone: [facility] 11-30-2024 16:18-0500 Systolic blood pressure 140 mm[Hg] Dr. Gigi Alas MD Work Phone: [facility] Encounters Encounter Date Encounter Type Care Provider Facility Start: 06-11-2025 ambulatory Dong Fan ity:[facility] Start: 02-18-2025 End: 02-18-[address] 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 -Laboratory, Specimen Work Phone: Start: 11-30-2024 End: 11-30-2024 ambulatory Ashley Rudd NP Facility:[facility] Start: 04-07-2024 Telephone encounter Gigi Chavez MD Work Phone: [facility] Comment on above: Appointment Start: 02-17-2024 End: 02-17-2024 ambulatory [facility] Work Phone: Start: 02-17-2024 End: 02-17-2024 Patient encounter procedure [facility]-Laboratory Work Phone: Plan of Treatment Date Care Activity Detail Author Serum testosterone measurement [facility] Sex hormone binding globulin [Moles/volume] in Serum or Plasma [facility] Testosterone Free [M ass/volume] in Serum or Plasma [facility] Testosterone measurement [facility] Immunizations Immunization Date Immunization Notes Care Provider Maria C martin 02-10-2021 Covid (Pfizer) [facility] Payers Date Payer Category Payer Medicare [id number] 2024 Self-pay [id number] 2024 Unknown [id number] Unknown [facility] [id number] Unknown [id number] [id number] Unknown [id number] Unknown [id number] Social History Date Type Detail Facility Start: [facility] Start: 01-04-[address] [facility] Start: 1960 Sex Assigned At Male [facility] Start: 01-04-2020 [facility] History of tobacco use Cigarette Smoker S [facility] Start: 09-05-2017 Alcohol intake Current non-dr inspector purchased parts of alcohol (finding) [facility] Start: 09-05-2017 Alcohol intake [facility] Start: 1960 Sex Assigned At Not on file [facility] Gender identity Not on file [facility] Start: 02-23-2025 Sex Male (finding) [facility] Evaluation note 11-30-2024 Note Date & Type Note Facility 11-30-2024 Evaluation note Diagnosis Onset Date Resolution Apnea, sleep acute November 30, 2024 4:15pm Fatigue acute November 30, 2 025 4:15pm Hyperlipidemia acute November 4:15pm Low testosterone acute November 30, 2024 4:15pm [facility] Work Phone: Telephone encounter Note 04-08-2024 Telephone Encounter - June Parnell MA - 04/08/2024 3:19 PM EDT Note Date & Type Note Facility 04-08-2024 Telephone encounter Note Form atting of this note might be different from the original. Patient scheduled with a different PCP. [facility] Note 04-08-2024 Telephone Encounter - June Parnell MA - 04/08/2024 3:19 PM EDTTelephone Encounter - Gigi Alas MD - 04/08/2024 8:25 AM EDTTelephone Encounter - Sissy Lee - 04/07/2024 9:20 AM EDT Note Date & Type Note Facility 04-08-2024 Miscellaneous Notes Formattin g of this note might be different from the original. Patient scheduled with a different PCP. That is what okay thank you means Okay, thank you Name of Caller: Carlene Contact Reason for Appointment: calling to schedule patient. However patient hasn't been seen since 2017. Would Dr Alas take him on as a new patient? Please advise Carlene. Office Name: [facility] Medication Refills need, if any: Medication Name: documented in this encounter [facility] [employer] Telephone encounter Note 04-08-2024 Telephone Encounter - Gigi Alas MD - 04/08/2024 8:25 AM EDT Note Date & Type Note Facility 04-08-2024 Telephone encounter Note That is what okay thank you means [employer] Work Phone: Telephone encounter Note 04-08-2024 Telephone Encounter - Gigi Alas MD - 04/08/2024 7:13 AM EDT Note Date & Type Note Facility 04-08-2024 Telephone encounter Note Form atting of this note might be different from the original. Okay, thank you [facility] [employer] Telephone encounter Note 04-07-2024 Telephone Encounter - Sissy Lee - 04/07/2024 9:20 AM EDT Note Date & Type Note Facility 04-07-2024 Telephone encounter Note Form atting of this note might be different from the original. Name of Caller: Carlene Contact Reason for Appointment: calling to schedule patient. However patient hasn't been seen since 2017. Would Dr Alas take him on as a new patient? Please advise Carelne. 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 Gigi Alas MD Family Provider Active Dr. Gigi lAas MD Primary Care Provider Active Team Status: Inactive Member Role Status Dates Dr. Gigi Alas MD Primary Care Provider Active Dr. Imer Barillas MD Attending Provider, Referring Denisse gao Active Team Status: Active Member Role Status Dates Dr. Gigi Alas MD Primary Care Provider Active Team Status: Inactive Member Role Status Dates Dr. Gigi Alas MD Primary Care Provider Active Start: November 30, 2024 End: November 30, 2024 Dr. Gigi Alas MD Referring Provider Active Start: November 30, 2024 End: November 30, 2024 KATHIE Dejesus NP Attending Provider Active Start: November 30, 2024 End: November 30, 2024 Team Status: Inactive Member Role Status Dates Dr. Gigi Alas MD Primary Care Provider Active Start: November 30, 2024 End: November 30, 2024 KATHIE Dejesus NP Attending Provider Active Start: November 30, 2024 End: November 30, 2024 KATHIE Dejesus NP Referring Provider Active Start: November 30, 2024 End: November 30, 2024 Team Status: Inactive Member Role Status Dates Dr. Gigi Alas MD Primary Care Provider Active Start: February 18, 2025 End: February 18, 2025 KATHIE Magallanes Attending Provider Active Start: February 18, 2025 End: February 18, 2025 KATHIE Magallanes Referring Provider Active Start: February 18, 2025 End: February 18, 2025 Goals (unrecognized section and content) Goals may be documented in a n alternate sectionGoals may be documented in an alternate section Reason for Visit (unrecogniz ed section and content) Reason Onset Date Comments Appointment 04/07/2024 (unrecognized sect ion and content) No Status Records FoundNo Status Records Found INFORMATION SOURCE (unrecogn ized section and content) DATE CREATED AUTHOR 04/08/2024 [facility] DATE CREATED AUTHOR AUTHOR'S ORGANIZ ATION 06/14/2025 [facility] FOR RECORDS PERTAINING TO PATIENTS WHO ARE OR HAVE BEEN ENROLLED IN A CHEMICAL DEPENDENCY/SUBSTANCEABUSE PROGRAM, SOME INFORMATION MAY BE OMITTED. This clinical summary was aggregated from multiple sources. Caution should be exercised in using it in the provision of clinical care. This summary normalizes information from multiple sources, and as a consequence, information in this document may materially change the coding, format and clinical context of patient data. In addition, data may be omitted in some cases. CLINICAL DECISIONS SHOULD BE BASED ON THE PRIMARY CLINICAL RECORDS. [email or web address] provides no warranty or guarantee of the accuracy or completeness of information in this document.
[2025-06-21 10:55] LABS: Hematocrit 49.8 % (40-54)
[2025-06-21 12:50] LABS: AST(SGOT) 21 U/L (<=37); Alanine Aminotransfer ALT/SGPT 21 U/L (<=46); Albumin, Serum 4.4 g/dL (3.4-4.8); Alkaline Phosphatase 78 U/L (40-129); Anion Gap 13 (5-15); BUN 22 mg/dL (4-19); BUN/Creat Ratio 27.5 RATIO (10-20); Calcium,Total 9.7 mg/dL (7.6-11.0); Carbon Dioxide 23.0 mmol/L (21.0-32.0); Chloride 100 mmol/L (98-108); Cholesterol 94 mg/dL (<=200); Globulin 2.6 g/dL (2.2-4.2); Glucose 98 mg/dL (70-99); Low Density Lipoprotein Calc. 44 mg/dL; Potassium 4.5 mmol/L (3.3-5.1); Triglycerides 65 mg/dL; Very Low Density Lipoprotein 13 mg/dL (5-40); cholesterol:hdl ratio screen 2.57
[2025-06-21 13:05] LABS: Follicle Stimulating Hormone < 0.3 mIU/mL; PSA,Total - Annual Screen 0.50 ng/mL (0.02-4.00)
[2025-06-25 12:08] LABS: PROLACTIN 7.8 ng/mL (3.6-25.2); Testosterone, % Free 2.06 % (1.50-4.20); Testosterone, Free 9.72 ng/dL (5.00-21.00)
== END | disposition home or self-care (01) ==
LOC: MTLAB 08:41
PROVIDERS: PCP Family Medicine; Referring Provider Registered Nurse; Visit Provider Registered Nurse
DX: E29.1 Testicular hypofunction (principal); R53.83 Other fatigue; Z12.5 Encounter for screening for malignant neoplasm of prostate; R68.82 Decreased libido; R63.5 Abnormal weight gain; R35.0 Frequency of micturition; R39.16 Straining to void; E78.9 Disorder of lipoprotein metabolism, unspecified
CPT/HCPCS: 36415; 80053; 80061; 82627; 82670; 83001; 83002; 83036; 84146; 84153; 84270; 84402; 84403; 84443; 85014; 82626; G0103

== ENCOUNTER → 2025-09-07 | Outpatient (CLI) | payer MEDICARE, BC, SELFPAY ==
[2025-09-07 12:31] LABS: Hematocrit 48.3 % (40-54); Hemoglobin 16.2 g/dL (13.0-16.5)
[2025-09-07 13:18] LABS: AST(SGOT) 17 U/L (<=37); Alanine Aminotransfer ALT/SGPT 15 U/L (<=46); Albumin, Serum 4.4 g/dL (3.4-4.8); Alkaline Phosphatase 86 U/L (40-129); Anion Gap 11 (5-15); BUN 15 mg/dL (4-19); BUN/Creat Ratio 21.3 RATIO (10-20); Calcium,Total 9.3 mg/dL (7.6-11.0); Carbon Dioxide 24.8 mmol/L (21.0-32.0); Chloride 101 mmol/L (98-108); Cholesterol 120 mg/dL (<=200); Globulin 2.5 g/dL (2.2-4.2); Glucose 91 mg/dL (70-99); Low Density Lipoprotein Calc. 64 mg/dL; Potassium 4.1 mmol/L (3.3-5.1); Triglycerides 112 mg/dL; Very Low Density Lipoprotein 22 mg/dL (5-40); cholesterol:hdl ratio screen 3.57
[2025-09-07 13:20] LABS: Follicle Stimulating Hormone < 0.3 mIU/mL
[2025-09-10 14:08] LABS: PROLACTIN 9.7 ng/mL (3.6-25.2); Testosterone, % Free 3.70 % (1.50-4.20); Testosterone, Free 41.66 ng/dL (5.00-21.00)
== END | disposition home or self-care (01) ==
LOC: LAB 11:48
PROVIDERS: PCP Nurse Practitioner; Referring Provider Registered Nurse; Visit Provider Registered Nurse
DX: E29.1 Testicular hypofunction (principal); R53.83 Other fatigue; Z12.5 Encounter for screening for malignant neoplasm of prostate; R68.82 Decreased libido; R63.5 Abnormal weight gain; R39.16 Straining to void; E78.9 Disorder of lipoprotein metabolism, unspecified
CPT/HCPCS: 36415; 80053; 80061; 82627; 82670; 83001; 83002; 84146; 84270; 84402; 84403; 84443; 85014; 85018; 82626